=== PATIENT | female | born 1950 ===

== ENCOUNTER 2017-04-25 18:28 | Emergency (ER) | payer MEDICARE, BC ==
[2017-04-25] MEDS ORDERED: oxyCODONE/Acetamin 5/325 MG* TAB PO ONE (19:20)
[2017-04-25] MEDS ORDERED: HYDROcodone/ACETAMIN 5-325 MG* 1 TAB PO ONE ×2 (19:30→20:09)
--- NOTE | 2017-04-25 19:30 | UC ---
Ear Complaint HPI - HPI Summary HPI Summary: Patient presents with right ear pain x 2 days which has been worsening. Denies fever, sore throat, PLUMMER or congestion. Denies baths or other activity underwater. Denies previous ear infections. Pain is stabbing and intermittent. Denies other pain or symptoms at this time. - History of Current Complaint Chief Complaint: UCEar Stated Complaint: EAR ACHE Time Seen by Provider: 04/25/17 19:12 Hx Obtained From: Patient ?: No Onset/Duration: Sudden Onset Severity Initially: Moderate Severity Currently: Severe Pain Intensity: 8 Pain Scale Used: 0-10 Numeric Aggravating Factors: Nothing Alleviating Factors: Heat Associated Signs/Symptoms: Positive: Hearing Loss - Allergies/Home Medications Allergies/Adverse Reactions: Allergies Allergy/AdvReac Type Severity Reaction Status Date / Time No Known Allergies Allergy Verified 04/25/17 18:52 Home Medications: Home Medications Hydrochlorothiazide TAB* [Hydrodiuril TAB*] 25 mg PO DAILY 04/25/17 [History Confirmed 04/25/17] Meloxicam [Mobic] 15 mg PO DAILY 04/25/17 [History Confirmed 04/25/17] Metoprolol Tartrate TAB* [Lopressor TAB*] 25 mg PO DAILY 04/25/17 [History Confirmed 04/25/17] Olmesartan Medoxomil [Benicar] 40 mg BEDTIME 04/25/17 [History Confirmed ] Simvastatin [Zocor 5 MG-] 10 mg BEDTIME 04/25/17 [History Confirmed 04/25/17] metFORMIN* [Glucophage 1000 MG TAB *] 1,000 mg PO BID 04/25/17 [History Confirmed 04/25/17] PMH/Surg Hx/FS Hx/Imm Hx Previously Healthy: Yes - Surgical History Surgical History: Yes Surgery Procedure, Year, and Place: RIGHT knee surgery. Hysterectomy - Family History Known Family History: Positive: Unknown - Social History Occupation: Employed Full-time Lives: With Family Alcohol Use: Rare Substance Use Type: None Smoking Status (MU): Former Smoker - Immunization History Most Recent Influenza Vaccination: 2016 Most Recent Tetanus Shot: UTD Most Recent Pneumonia Vaccination: UTD Review of Systems Constitutional: Negative Skin: Negative Eyes: Negative ENT: Ear Ache Respiratory: Negative Cardiovascular: Negative Musculoskeletal: Negative Neurological: Negative Psychological: Negative All Other Systems Reviewed And Are Negative: Yes Physical Exam Triage Information Reviewed: Yes Appearance: Well-Appearing, No Pain Distress, Well-Nourished Vital Signs: Initial Vital Signs Temp 97.8 F 04/25/17 18:53 Pulse 56 04/25/17 18:53 Resp 18 04/25/17 18:53 BP 141/69 04/25/17 18:53 Pulse Ox 99 04/25/17 18:53 Vital Signs Reviewed: Yes Eye Exam: Normal Eyes: Positive: Conjunctiva Clear ENT: Positive: Other: - TM's prior to irrigation: cerumen impaction Dental Exam: Normal Neck exam: Normal Neck: Positive: Supple, No Lymphadenopathy Respiratory Exam: Normal Respiratory: Positive: Chest non-tender Cardiovascular Exam: Normal Cardiovascular: Positive: RRR Neurological Exam: Normal Neurological: Positive: Alert Psychological: Positive: Normal Response To Family, Age Appropriate Behavior Skin Exam: Normal Ear Complaint Course/Dx - Course Course Of Treatment: Patient presents with 10/10 pain of the right ear. Denies previous infections. Ear irrigation completed. Moderate amount of ear wax discharged. Patient right ear showing moderate otitis externa with yellow serous drainage, inflammation, erythema around canal and mild swelling. Patient is encouraged to follow up with ENT if symptoms persist. Ofloxacin 5 drops per day for 7 days given. Oxycodone for pain. Patient is OK with plan and discharge. - Differential Dx/Diagnosis Differential Diagnosis/HQI/PQRI: Barotrauma, Cerumen Impaction, Otitis Externa, Otitis Media, Perforated TM Provider Diagnoses: Otitis externa Discharge - Discharge Plan Condition: Stable Disposition: HOME Prescriptions: Ofloxacin 0.3% OTIC.JESSA* [Floxin 0.3% OTIC.JESSA*] 5 drop .SEE ORDER DAILY #1 btl oxyCODONE/Acetamin 10/325(NF) [Percocet 10/325 (NF)] 1 tab PO Q6H #12 tab MDD 4 Patient Education Materials: Otitis Externa (ED) Referrals: Aleksandra Ocampo MD [Primary Care Provider] - Additional Instructions: Follow up with ENT if symptoms persist. Ibuprofen every 6 hours - on opposite schedule, oxycodone every 6 hours as needed for pain.
[2017-04-25] MEDS ORDERED: Ofloxacin 0.3% OTIC.SOL* 5 ML BTL RIGHT EAR SCH (21:00)
== END 2017-04-25 20:17 | disposition home or self-care (01) ==
LOC: UCCORT 18:28
DX: H60.91 Unspecified otitis externa, right ear (principal); H61.21 Impacted cerumen, right ear; Z90.710 Acquired absence of both cervix and uterus; Z87.891 Personal history of nicotine dependence
CPT/HCPCS: 99203; A9270-GY; G0463